=== PATIENT | male | born 1955 | race Caucasian/White ===

== ENCOUNTER → 2025-01-27 15:08 | Outpatient (REF) | payer MEDICARE, OTHER, SELFPAY | LOC: RAD 15:08 | PROVIDERS: ATTENDING PHYSICIAN Family Medicine | DX: M17.11 Unilateral primary osteoarthritis, right knee (principal) | CPT/HCPCS: 73564 ==

== ENCOUNTER 2025-03-16 16:40 | Emergency (ER) | payer MEDICARE, OTHER, SELFPAY ==
[2025-03-16 16:43] VITALS: BP 148/76
--- NOTE | 2025-03-17 00:17 | ED.GENMED ---
History of Present Illness
General
Chief Complaint: Crisis Evaluation
Source: patient and family (brother)
Exam Limitations: none
Time Seen by Provider: 03/16/25 17:47
Nursing documentation reviewed up to this point in time: agreed with
History of Present Illness
History of Present Illness:
Patient to ED accompanied by brother for crisis eval. Patient with history of depression, admits to suicidal thoughts but no plan.
Past History
Past History
ED Past Medical History: HTN, NIDDM and Psychiatric (depression)
Course
Orders/Labs/Results
Orders:
Orders
03/16/25 16:41
1:1 Observation - Suicide/ Violent Behavior As Directed
Crisis Consult Urgent
Reason for Consult: +SI thoughts, no plan - mild risk
Vital Signs
Initial and Last Documented VS:
Initial Vital Signs
Temp Pulse Resp BP Pulse Ox
98.3 F 89 16 148/76 99
03/16/25 16:43 03/16/25 16:43 03/16/25 16:43 03/16/25 16:43 03/16/25 16:43
Last Documented Vital Signs
Temp Pulse Resp BP Pulse Ox
98.3 F 78 18 148/76 99
03/16/25 16:43 03/16/25 19:14 03/16/25 19:14 03/16/25 16:43 03/16/25 19:14
Update Note
Update Note:
Patient to ED for crisis eval. History of depression. He admits to SI without plan. He was evaluated by crisis and cleared for discharge with IOP plan. Patient is agreeable to plan. Brother is agreeable with discharge and follow up plan. Gven
instructions on s/s to return to ED and he is agreeable to plan.
ED Attending Note
-
Portions of this chart may have been created with voice recognition software.� Occasional wrong word or��sound alike� substitutions may have occurred due to the inherent limitations of voice recognition software.
Discharge Plan
Departure
Patient Disposition: Home (Routine Discharge)
Date of Disposition: 03/16/25
Time of Disposition: 19:11
Patient with high blood pressure during this ER visit?: No
Condition: Good
Covid-19: Not Applicable
Discharge Problem:
Depression
Instructions: Depression, Adult (DC)
Prescriptions:
No Action
furosemide 40 MG tablet
40 mg PO DAILY
lisinopril-hydrochlorothiazide 1 EACH tablet
1 tab PO DAILY
metformin 1,000 MG tablet
1,000 mg PO BID
naproxen sodium [Aleve] 220 MG tablet
220 mg PO PRN PRN (Reason: pain)
aspirin [Chuck Chewable Aspirin] 81 MG tablet,chewable
81 mg PO DAILY
Potassium Chloride 20 MEQ Tab.Er.Prt
20 meq PO DAILY
Referrals:
Bernard Tee MD [Family Provider] -
Activity Restrictions/Additional Instructions:
Return to the emergency department immediately for any changes in/worsening of your symptoms.
Interventions
Interventions:
*Risk Screen - Suicide Last Done: 03/16/25 16:43
*General Assessment Last Done: 03/16/25 19:14
*Neglect/Abuse Screening Last Done: 03/16/25 16:43
*ED- Fall Risk Assessment Last Done: 03/16/25 19:14
*ED COVID-19 Vaccine History Last Done: 03/16/25 19:14
*Nursing Disposition Last Done: 03/16/25 19:14
ED-Psychological Assessment Last Done: 03/16/25 17:08
Discharge Date and Time
Discharge Date/Time: 03/16/25 19:17
Print Language: SERBIAN
== END 2025-03-16 19:17 | disposition home or self-care (01) ==
LOC: EMR 16:40
PROVIDERS: EMERGENCY PHYSICIAN Student in an Organized Health Care Education/Training Program; FAMILY PHYSICIAN Family Medicine
DX: F32.A Depression, unspecified (principal); E11.9 Type 2 diabetes mellitus without complications; I10 Essential (primary) hypertension
CPT/HCPCS: 99283

== ENCOUNTER 2025-03-22 10:37 | Emergency (ER) | payer MEDICARE, OTHER, SELFPAY ==
[2025-03-22 10:39] VITALS: BP 104/78
[2025-03-22 11:14] VITALS: BMI 35.7
--- NOTE | 2025-03-22 11:15 | ED.GENMED ---
History of Present Illness
General
Chief Complaint: Crisis Evaluation
Source: patient
Exam Limitations: none
Time Seen by Provider: 03/22/25 10:51
Nursing documentation reviewed up to this point in time: agreed with
History of Present Illness
History of Present Illness:
69 y/o M
h/o NIDDM, HTN, PVD, edema
here with brother who is also historian
h/o depression for eyars
has been hospitalized a few timse remotely
2 weeks of worssening depression, [place], not sleeping, not eating, flat affect
passive SI
no plan
was here on 03/17 and given otupatient resources
pt has been spiraling since
here with brother who is convinced pt would consider self harm if not for the fact that sister committed suicide 2 yeras ago
pt hasn't been sleeping
went to PCP 5 days ago, given new meds: lexapro and trazodone but hasn't had any relief
he started abilify las tnight
he now is here saying he knows he needs help
not eating
bp is also low
doesn't ahve otherwise any medical complaints
i reviewed a not efrom a previous behavioral health professional listing his long standing depression, meds he has taken, which have been many over the years
pt's last hospitalization was march 2014
Past History
Past History
ED Past Medical History: HTN, NIDDM and Psychiatric (depression)
Social History
Tobacco: Non-smoker
Alcohol: None
Drug: None
Personal: Single
Living: alone
Review of Systems
Review of Systems
Allergies reviewed?: Yes
All Other Systems: Not applicable
Phy Exam
Physical Exam
Physical Exam:
GENERAL: Alert , in no apparent distress very flat affect
EYE: pupils equal and reactive
NECK: Supple
ENT: o/p clr, mmm.
CARDIAC: Regular rate and rhythm .
LUNGS: Clear breath sounds bilaterally, no acute respiratory distress, no wheezes/rales/rhonchi
ABDOMEN: Soft, without focal tenderness, no r/g, no cvat, normal bowel sounds
NEUROLOGICAL: Alert and oriented, no focal neuro deficits
SKIN: Warm and dry, skin intact.
MUSCULOSKELETAL: No edema, well perfused. neg guzman's sign
PSYCH: Normal and appropriate interaction.
Course
Orders/Labs/Results
Orders:
Orders
03/22/25 10:44
1:1 Observation - Suicide/ Violent Behavior As Directed
03/22/25 11:12
Crisis Consult Urgent
Reason for Consult: depression
03/22/25 11:15
0.9% Sodium Chloride 500 ml [Nss] 500 ml IV BOLUS
03/22/25 11:22
Complete Blood Count/With Diff Urgent
Comprehensive Metabolic Panel Urgent
Magnesium Urgent
Urinalysis Reflex To Culture Urgent
Date Specimen was Collected: 03/22/25
Time Specimen was Collected: 11:19
Urine Drug Abuse Screen Urgent
Date Specimen was Collected: 03/22/25
Time Specimen was Collected: 11:19
Urine Microscopic Reflex Cult Urgent
03/22/25 18:24
COVID-19 Antigen Urgent
Source: Nasal Swab
Abnormal Lab Results
03/22/25
11:22
Absolute Neuts (auto) 6.9 H 10^3/uL
(1.4-6.5)
Absolute Monos (auto) 0.9 H 10^3/uL
(0.1-0.6)
Lymphocytes % 15.1 L %
(20.5-51.1)
Monocytes % 9.9 H %
(1.7-9.3)
BUN 35 H mg/dl
(9-20)
Glucose 101 H mg/dl
(70-99)
Urine Albumin (Reflex) 1+ A
(Neg - Trace)
03/22/25 11:22
03/22/25 11:22
Vital Signs
Initial and Last Documented VS:
Initial Vital Signs
Temp Pulse Resp BP Pulse Ox
36.3 C 87 16 104/78 96
03/22/25 10:39 03/22/25 10:39 03/22/25 10:39 03/22/25 10:39 03/22/25 10:39
Last Documented Vital Signs
Temp Pulse Resp BP Pulse Ox
36.8 C 72 18 104/48 100
03/22/25 16:08 03/22/25 20:04 03/22/25 20:04 03/22/25 20:04 03/22/25 20:04
MDM/Problems Addressed
Differential Diagnosis Includes:
depression, dehydration, electrolyte abnormalities
MDM/Problems Addressed:
69 y/o M
severe depression
ho long standing depression for years
here requesting intpatint treatment
hasn't been sleeping, eating, has a lack of interest in activities, trouble focusing
here with borther who is very concerned about his mental state; they say their sister committed suicide a few years ago
pt was here 03/17 for same symtoms but seen by crisis and did not have plan, was discharged
pt has f/u outpatient with counseleor and also his PCP without success in improvement and borther fears it is worse now
Patient has no physical complaints other than feeling a little tired.
He is mild low blood pressure, reports he has not been eating or drinking much. But he is on Lasix so I did give him small fluid bolus. His BUN was slightly elevated consistent with dehydration, otherwise his labs are unremarkable.
He was seen by the crisis counselor and a bed search was performed
153
he signed 201
most likely will be palced today
signed out to yasmani agarwal pending placement 201
*Critical Care Note
Total Time (30-74mins, 75-104mins- exclusive of procedures): Not Applicable
ED Attending Note
-
Portions of this chart may have been created with voice recognition software.� Occasional wrong word or��sound alike� substitutions may have occurred due to the inherent limitations of voice recognition software.
Discharge Plan
Departure
Patient Disposition: Psych Facility
Discharge Problem:
Depression
Instructions: Depression, Adult (DC)
Prescriptions:
No Action
furosemide [Lasix] 40 mg Tablet
40 mg PO DAILY
lisinopril-hydrochlorothiazide 20-12.5 mg tablet
2 tab PO DAILY
metformin 1,000 mg tablet
1,000 mg PO BID
rosuvastatin [Crestor] 10 mg Tablet
10 mg PO DAILY
potassium chloride 20 mEq Tablet Extended Release
20 meq PO DAILY
trazodone 50 mg Tablet
50 mg PO HSPRN PRN (Reason: sleep)
aspirin 81 mg Tablet,Delayed Release (Dr/Ec)
81 mg PO DAILY
escitalopram oxalate [Lexapro] 10 mg Tablet
10 mg PO DAILY
pregabalin [Lyrica] 100 mg Capsule
100 mg PO BID
aripiprazole [Abilify] 2 mg Tablet
2 mg PO HS
Referrals:
Bernard Tee MD [Family Provider] -
Interventions
Interventions:
*Risk Screen - Suicide Last Done: 03/22/25 10:43
*General Assessment Last Done: 03/22/25 11:14
*Neglect/Abuse Screening Last Done: 03/22/25 13:00
*ED- Fall Risk Assessment Last Done: 03/22/25 11:14
*ED COVID-19 Vaccine History Last Done: 03/22/25 11:14
*Nursing Disposition Last Done: 03/22/25 20:13
ED-Psychological Assessment Last Done: 03/22/25 13:45
Discharge Date and Time
Discharge Date/Time: 03/22/25 20:23
Print Language: COMORAN
[2025-03-22] MEDS: NSS 500 IV (11:26)
[2025-03-22 11:43] LABS: Urine Albumin 1+ (Neg - Trace); Urine Bilirubin Negative (Negative); Urine Character Clear (Clear); Urine Color Yellow; Urine Glucose Negative (Negative); Urine Ketone Negative (Negative); Urine Leukocyte Negative (Negative); Urine Nitrite Negative (Negative); Urine Occult Blood Negative (Negative); Urine Urobilinogen 1+ (Neg - 1+)
[2025-03-22 11:50] LABS: % Basophils 0.3 % (0-2); % Eosinophils 0.5 % (0-6); % Immature Granulocytes 0.4 % (0-0.5); % Lymphocytes 15.1 % (20.5-51.1); % Monocytes 9.9 % (1.7-9.3); % Neutrophils 73.8 % (42.2-75.2); Absolute Eosinophils 0.1 10^3/uL (0-0.7); Absolute Lymphocytes 1.4 10^3/uL (1.2-3.4); Absolute Monocytes 0.9 10^3/uL (0.1-0.6); Absolute Neutrophils 6.9 10^3/uL (1.4-6.5); Hematocrit 44.2 % (39.0-52.0); Hemoglobin 15.3 g/dL (13.0-18.0); Mean Corp Hgb Conc. 34.6 g/dL (33.0-37.0); Mean Corpuscular Volume 89.7 fL (80.0-94.0); Mean Platelet Volume 9.7 fL (7.4-10.4); Nucleated Red Blood Cells % 0 % (-); Platelet Count 257 10^3/uL (130-400); Red Blood Cell Count 4.93 10^6/uL (4.70-6.10); Red Cell Dist. Width 12.8 % (11.5-14.5); White Blood Cell Count 9.4 10^3/uL (4.8-10.8)
[2025-03-22 11:52] LABS: Urine Mucus Few; Urine Red Blood Cell 0-2 /HPF (0-2); Urine Squamous Cell 0-2 /LPF (Few); Urine White Cell 0-2 /HPF (0-5)
[2025-03-22 11:57] LABS: ALT (SGPT) 19 U/L (0-50); AST (SGOT) 18 U/L (17-59); Albumin 4.2 g/dl (3.5-5.0); Alkaline Phosphatase 101 U/L (38-126); Blood Urea Nitrogen 35 mg/dl (9-20); Calcium 9.7 mg/dl (8.4-10.2); Carbon Dioxide 26 mmol/L (22-30); Chloride 102 mmol/L (98-107); Estimated Creatinine Clearance 87 ml/min; Glucose 101 mg/dl (70-99); Magnesium 1.8 mg/dl (1.6-2.3); Potassium 4.1 mmol/L (3.5-5.1); Sodium 137 mmol/L (135-145); Total Bilirubin 0.4 mg/dl (0.2-1.3); Total Protein 6.7 g/dl (6.3-8.2); eGFR > 60.00
[2025-03-22 12:06] LABS: Amphetamines Negative (Negative); Barbiturates Negative (Negative); Benzodiazepines Negative (Negative); Buprenorphine Negative (Negative); Cocaine Negative (Negative); Marijuana Negative (Negative); Methadone Negative (Negative); Methamphetamines Negative (Negative); Opiates Negative (Negative); Phencyclidine Negative (Negative); Tricyclic Antidepressants Negative (Negative)
[2025-03-22 16:08] VITALS: BP 97/54
[2025-03-22 18:47] LABS: COVID-19 Antigen Negative (Negative)
[2025-03-22 20:04] VITALS: BP 104/48
== END 2025-03-22 20:23 ==
LOC: EMR 10:37
PROVIDERS: Physician Assistant; EMERGENCY PHYSICIAN Emergency Medicine; FAMILY PHYSICIAN Family Medicine
DX: F32.A Depression, unspecified (principal); R45.851 Suicidal ideations; R63.0 Anorexia; E86.0 Dehydration; R03.1 Nonspecific low blood-pressure reading; Z11.52 Encounter for screening for COVID-19; E11.51 Type 2 diabetes mellitus with diabetic peripheral angiopathy without gangrene; I10 Essential (primary) hypertension; G47.30 Sleep apnea, unspecified; Z79.84 Long term (current) use of oral hypoglycemic drugs; Z96.652 Presence of left artificial knee joint; Z85.46 Personal history of malignant neoplasm of prostate; Z87.891 Personal history of nicotine dependence
CPT/HCPCS: 99285; 80053; 80306; 81003; 81015; 83735; 85025; 87811